=== PATIENT | male | born 1990 | race Caucasian/White ===

== ENCOUNTER 2018-08-15 21:47 | Emergency (ER) | payer OTHER ==
[~2018-08-15] VITALS: Ht 188 cm; Wt 77.1 kg
[2018-08-15 21:53] VITALS: BP 128/74
[2018-08-15] MEDS ORDERED: NAPROSYN500 MG PO (22:21)
[2018-08-15] MEDS ORDERED: CLEOCIN HCL300 MG PO (22:21)
== END 2018-08-15 22:30 | disposition home or self-care (01) ==
LOC: M.ERS 21:47
DX: S02.5XXA Fracture of tooth (traumatic), initial encounter for closed fracture (principal); K04.7 Periapical abscess without sinus; Z88.1 Allergy status to other antibiotic agents; X58.XXXA Exposure to other specified factors, initial encounter; Y93.89 Activity, other specified; Y92.89 Other specified places as the place of occurrence of the external cause; Y99.8 Other external cause status

== ENCOUNTER 2020-03-12 00:26 | Emergency (ER) | payer OTHER ==
[~2020-03-12] VITALS: Ht 188 cm; Wt 77.1 kg
[~2020-03-12 00:26] MED LIST: CLEOCIN HCL300 MG PO; NAPROSYN500 MG PO
[2020-03-12 00:36] VITALS: BP 131/73
[2020-03-12] MEDS ORDERED: ORAL ANTIBIOTIC (00:38)
[2020-03-12] MEDS ORDERED: NORCO 5-325 TA1 EAC2 PO (00:47)
[2020-03-12] MEDS ORDERED: BACTRIM DS TAB1 EAC1 PO (00:47)
== END 2020-03-12 01:09 | disposition home or self-care (01) ==
LOC: M.ERS 00:26
DX: Z48.01 Encounter for change or removal of surgical wound dressing (principal); Z88.1 Allergy status to other antibiotic agents